=== PATIENT | male | born 1970 | race Two or more races ===

== ENCOUNTER → 2018-06-12 | Outpatient (CLI) | payer BC | END | disposition home or self-care (01) | LOC: HKI 15:24 | DX: M25.561 Pain in right knee (principal) | CPT/HCPCS: 73564; 73564-50 ==

== ENCOUNTER 2019-03-06 06:02 | Emergency (ER) | payer SELFPAY, BC ==
[2019-03-06 06:46] LABS: URINE BLOOD (Dip) POC 2+ (NEGATIVE); URINE GLUCOSE (Dip) POC Negative (NEGATIVE); URINE KETONES (Dip) POC Negative (NEGATIVE); URINE LEUKOCYTE EST (Dip) POC Negative (NEGATIVE); URINE NITRITE (Dip) POC Negative (NEGATIVE); URINE TOTAL PROTEIN POC 1+ (NEGATIVE)
[2019-03-06] MEDS: KETOROLAC 30 MG INJ IM (07:15)
[2019-03-06] MEDS: HYDROCODONE/APAP (10/325) TAB PO (08:20)
[2019-03-06] MEDS: ONDANSETRON (ODT) 4 MG TAB ODT (08:20)
== END 2019-03-06 08:33 | disposition home or self-care (01) ==
LOC: FTE 06:02
DX: N20.0 Calculus of kidney (principal)
CPT/HCPCS: 74176; 81003; 93005; 99284-25